=== PATIENT | female | born 1990 | race Caucasian/White ===

== ENCOUNTER 2016-08-14 15:02 | Emergency (ER) | payer SELFPAY ==
[2016-08-14 15:17] VITALS: BP 123/82
--- NOTE | 2016-08-14 15:18 | ER Document Report ---
ED Medical Screen (RME) - General Stated Complaint: COUGH Notes: Patient is a 25-year-old female presents emergency Department with cough runny nose and body aches 2 days ago Wheezing or shortness of breath, denies a history of asthma no influenza vacc I have greeted and performed a rapid initial assessment of this patient. A comprehensive ED assessment and evaluation of the patient, analysis of test results and completion of the medical decision making process will be conducted by additional ED providers. TRAVEL OUTSIDE OF THE [place] IN LAST 30 DAYS: No - Related Data Allergies/Adverse Reactions: No Known Allergies Allergy (Verified 08/14/16 15:17) Past Medical History Pulmonary Medical History: Denies: Hx Asthma, Hx Bronchitis, Hx Pneumonia Renal/ Medical History: Reports: Hx Ovarian Cysts - PCOS - Immunizations Immunizations up to date: No Hx Diphtheria, Pertussis, Tetanus Vaccination: Yes Physical Exam - Vital signs Vitals: Temp Pulse Resp BP Pulse Ox 98.6 F 103 H 16 123/82 99 08/14/16 15:15 08/14/16 15:15 08/14/16 15:15 08/14/16 15:15 08/14/16 15:15 Course - Vital Signs Vital signs: Temp Pulse Resp BP Pulse Ox 98.6 F 103 H 16 123/82 99 08/14/16 15:15 08/14/16 15:15 08/14/16 15:15 08/14/16 15:15 08/14/16 15:15
--- NOTE | 2016-08-14 17:35 | ER Document Report ---
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 [employer], changes locations and temperatures Associated Symptoms: None Exacerbated by: Denies Relieved by: Denies Similar symptoms previously: Yes Recently seen / treated by doctor: No - ROS ROS below otherwise negative: Yes Systems Reviewed and Negative: Yes All other systems reviewed and negative - REPRODUCTIVE Reproductive: DENIES: : - DERM Skin Color: Normal Past Medical History - General Information source: Patient - Social History Smoking Status: Current Every Day Smoker Chew tobacco use (# tins/day): No Frequency of alcohol use: None Drug Abuse: None Lives with: Family Family History: Reviewed & Not Pertinent Patient has suicidal ideation: No Patient has homicidal ideation: No Renal/ Medical History: Reports: Hx Ovarian Cysts - PCOS. Denies: Hx Peritoneal Dialysis Surgical Hx: Negative - Immunizations Immunizations up to date: No Hx Diphtheria, Pertussis, Tetanus Vaccination: Yes Vertical Provider Document - CONSTITUTIONAL Agree With Documented VS: Yes Exam Limitations: No Limitations General Appearance: No Apparent Distress - INFECTION CONTROL TRAVEL OUTSIDE OF THE [place] IN LAST 30 DAYS: No - HEENT HEENT: Normocephalic, PERRLA, Pharyngeal Erythema. negative: Conjuctival Injection, Pharyngeal Tenderness, Tympanic Membrane Bulging - NECK Neck: Supple. negative: Lymphadenopathy-Left, Lymphadenopathy-Right - RESPIRATORY Respiratory: Breath Sounds Normal, No Respiratory Distress O2 Sat by Pulse Oximetry: 99 - CARDIOVASCULAR Cardiovascular: Regular Rate, Regular Rhythm - GI/ABDOMEN Gastrointestinal: Abdomen Soft, Abdomen Non-Tender, No Organomegaly - MUSCULOSKELETAL/EXTREMETIES Musculoskeletal/Extremeties: STAR, PETERSON - NEURO Level of Consciousness: Awake, Alert Motor/Sensory: No Motor Deficit, No Sensory Deficit - DERM Integumentary: Warm, Dry, No Rash Course - Vital Signs Vital signs: Temp Pulse Resp BP Pulse Ox 98.6 F 103 H 16 123/82 99 08/14/16 15:15 08/14/16 15:15 08/14/16 15:15 08/14/16 15:15 08/14/16 15:15 Discharge - Discharge Clinical Impression: upper respiratory infection Disposition: HOME, SELF-CARE Instructions: Acetaminophen, Use of Mpmv-Vze-Rkxrfdu Ibuprofen ([facility]), Upper Respiratory Illness ([facility]) Additional Instructions: cool mist humidifier at night, wash it daily to er if worse stop smoking tylenol or motrin for discomfort rest plenty of fluids over the counter cold medicine of your choice. Forms: Return to Work
== END 2016-08-14 18:10 | disposition home or self-care (01) ==
LOC: ER 15:02
DX: J06.9 Acute upper respiratory infection, unspecified (principal); J02.9 Acute pharyngitis, unspecified; F17.200 Nicotine dependence, unspecified, uncomplicated
CPT/HCPCS: 87804; 99283

== ENCOUNTER 2017-08-06 22:21 | Emergency (ER) | payer SELFPAY ==
[2017-08-06 23:41] VITALS: BP 122/76
--- NOTE | 2017-08-07 01:38 | ER Document Report ---
HPI - HPI Patient complains to provider of: Chills, flank pain, congestion Pain Level: 5 Context: Patient is a 26-year-old female comes emergency department for chief complaint of chills, pain in her mid to lower back on both sides, and some congestion/ cough for the past 24 hours. She denies abdominal pain, nausea or vomiting, shortness of breath, chest pain. No obvious sick contacts. Denies any past medical history, only takes vitamins, LMP within the past month. - REPRODUCTIVE LMP: 07/30/2017 Reproductive: DENIES: : Past Medical History - General Information source: Patient - Social History Smoking Status: Never Smoker Frequency of alcohol use: None Drug Abuse: None Lives with: Family Family History: Reviewed & Not Pertinent Pulmonary Medical History: Denies: Hx Asthma, Hx Bronchitis, Hx Pneumonia Renal/ Medical History: Reports: Hx Ovarian Cysts - PCOS. Denies: Hx Peritoneal Dialysis Surgical Hx: Negative - Immunizations Immunizations up to date: No Hx Diphtheria, Pertussis, Tetanus Vaccination: Yes Vertical Provider Document - CONSTITUTIONAL General Appearance: WD/WN, No Apparent Distress - INFECTION CONTROL TRAVEL OUTSIDE OF THE [place] IN LAST 30 DAYS: No - HEENT HEENT: Atraumatic, Normocephalic. negative: Normal ENT Exam - Sinus congestion , mild tenderness over sinuses generally, unremarkable oropharyngeal exam, unremarkable ear exam - NECK Neck: Normal Inspection - RESPIRATORY Respiratory: Breath Sounds Normal, No Respiratory Distress O2 Sat by Pulse Oximetry: 97 - CARDIOVASCULAR Cardiovascular: Regular Rate, Regular Rhythm - GI/ABDOMEN Gastrointestinal: Abdomen Soft, Abdomen Non-Tender - BACK Back: Normal Inspection. negative: CVA Tenderness-Right, CVA Tenderness-Left - MUSCULOSKELETAL/EXTREMETIES Musculoskeletal/Extremeties: MAEW, FROM, Non-Tender - NEURO Level of Consciousness: Awake, Alert, Appropriate Motor/Sensory: No Motor Deficit, No Sensory Deficit - DERM Integumentary: Warm, Dry Course - Re-evaluation Re-evalutation: Patient tachycardic, complaining of feeling feverish for the past 24 hours, has vague flank pain, mild congestion, nonspecific presentation. No hypoxia. No distress. Discussed with mother and patient, agreed to check chest x-ray, urinalysis, influenza. 08/07/17 Recommended chest x-ray but this was delayed and patient then refused. Urinalysis unremarkable, influenza is negative. On my reevaluation patient's heart rate is 104. She denies any shortness of breath. She has sinus congestion and tenderness suggesting sinus infection although I suspect she actually had a viral syndrome with body aches. No CVA tenderness. Soft abdomen. Generally well-appearing, smiling, alert, conversational. Patient will be treated symptomatically, discussed this, discussed antibiotics for sinus infection, they will wait for this, discussed follow-up, discussed return precautions, patient and mother state satisfaction and agreement with plan. - Vital Signs Vital signs: Temp Pulse Resp BP Pulse Ox 99.6 F 120 H 18 122/76 97 08/06/17 23:38 08/06/17 23:38 08/06/17 23:38 08/06/17 23:38 08/06/17 23:38 Discharge - Discharge Clinical Impression: Chills, Flank pain, Sinus congestion Condition: Stable Disposition: HOME, SELF-CARE Additional Instructions: Your urinalysis is normal. The influenza test is negative. Your physical exam is nonspecific but I suspect a virus with developing sinus infection. Recommendation is to use the Flonase and decongestant along with ibuprofen and Tylenol for pain and chills, if symptoms continue or worsen any begin develop increased pain in your sinuses on the fifth day of symptoms take the antibiotics and follow-up with primary care. Return for any concerning or worsening symptoms including difficulty breathing, severe headache, or any other concerning symptoms. Prescriptions: Amoxicillin Trihydrate [Amoxil 875 mg Tablet] 1 tab PO BID #20 tablet Fluticasone Propionate [Flonase Nasal Wyarno 50 Mcg/Wyarno 16 gm] 2 sprays NASL Q12 #1 inhaler Pseudoephedrine HCl [Sudafed 12-Hour] 120 mg PO Q12 #20 tablet.sa Forms: Return to Work, Treatment of Relative/Child
[2017-08-07 03:54] LABS: APPEARANCE,URINE HAZY; BILIRUBIN,URINE NEGATIVE (NEGATIVE); COLOR,URINE YELLOW; GLUCOSE, URINE NEGATIVE (NEGATIVE); KETONES,URINE NEGATIVE (NEGATIVE); LEUKOCYTE ESTERASE,URINE NEGATIVE (NEGATIVE); NITRITE,URINE NEGATIVE (NEGATIVE); PROTEIN,URINE NEGATIVE (NEGATIVE); URINE SPECIFIC GRAVITY 1.013
[2017-08-07 04:05] LABS: A TYPE INFLUENZA AG NEGATIVE (NEGATIVE); B INFLUENZA AG NEGATIVE (NEGATIVE)
== END 2017-08-07 04:12 | disposition home or self-care (01) ==
LOC: ER 22:21
DX: R68.83 Chills (without fever) (principal); R10.9 Unspecified abdominal pain; R09.81 Nasal congestion; M54.5 Low back pain; Z87.42 Personal history of other diseases of the female genital tract
CPT/HCPCS: 81001; 81025; 87804; 99283

== ENCOUNTER 2017-09-04 08:08 | Emergency (ER) | payer OTHER ==
[2017-09-04] MEDS ORDERED: IPRATROPIUM/ALBUTEROL 0.5-2.5 MG/3 ML AMPUL NEB ONE (09:32)
--- NOTE | 2017-09-04 10:00 | ER Document Report ---
ED General - General Chief Complaint: Cough Stated Complaint: COUGH Time Seen by Provider: 09/04/17 08:47 Mode of Arrival: Ambulatory Information source: Patient TRAVEL OUTSIDE OF THE [place] IN LAST 30 DAYS: No - HPI Notes: a 26-year-old female presents today with complaints of coughing, nasal congestion, wheezing for 1 day. Denies fevers and chills. Cough pain is 6/10, comes and goes. Denies cp, sob, n/v/d,abd pain, dysuria and hematuria. Reports congestion. Cough is productive. Tried otc cold medications without relief. Has not been seen by pcp. Hx of smoking. Symptoms are progressive. Worse when flat, better when upright. Denies pedal swelling. Denies cardiac hx. Vaccinations are UTD. Denies , l - Related Data Allergies/Adverse Reactions: No Known Allergies Allergy (Verified 09/04/17 08:09) Past Medical History - General Information source: Patient - Social History Smoking Status: Current Every Day Smoker Chew tobacco use (# tins/day): No Frequency of alcohol use: Occasional Family History: Reviewed & Not Pertinent Patient has suicidal ideation: No Patient has homicidal ideation: No Pulmonary Medical History: Denies: Hx Asthma, Hx Bronchitis, Hx Pneumonia Renal/ Medical History: Reports: Hx Ovarian Cysts - PCOS. Denies: Hx Peritoneal Dialysis - Immunizations Immunizations up to date: No Hx Diphtheria, Pertussis, Tetanus Vaccination: Yes Review of Systems - Review of Systems Constitutional: No symptoms reported EENT: See HPI Cardiovascular: No symptoms reported Respiratory: See HPI Gastrointestinal: No symptoms reported Genitourinary: No symptoms reported Female Genitourinary: No symptoms reported Musculoskeletal: No symptoms reported Skin: No symptoms reported Hematologic/Lymphatic: No symptoms reported Neurological/Psychological: No symptoms reported Physical Exam - Vital signs Vitals: Temp Pulse Resp BP Pulse Ox 98.6 F 92 16 110/90 H 98 09/04/17 08:21 09/04/17 08:21 09/04/17 08:21 09/04/17 08:21 09/04/17 08:21 - Notes Notes: PHYSICAL EXAMINATION: GENERAL: Well-appearing, well-nourished and in no acute distress. HEAD: Atraumatic, normocephalic. EYES: Pupils equal round and reactive to light, extraocular movements intact, conjunctiva are normal. ENT: TM intact with bilateral serous effusion, no erythema. Nares boggy bilaterally, oropharynx with erythema without exudates. Moist mucous membranes. NECK: Normal range of motion, supple without lymphadenopathy LUNGS: Wheezing in upper lobes. After breathing treatment, breath sounds clear to auscultation bilaterally and equal. No wheezes rales or rhonchi. HEART: Regular rate and rhythm without murmurs ABDOMEN: Soft, nontender, nondistended abdomen. No guarding, no rebound. No masses appreciated. Female : deferred Musculoskeletal: Normal range of motion, no pitting or edema. No cyanosis. NEUROLOGICAL: Cranial nerves grossly intact. Normal speech, normal gait. Normal sensory, motor exams PSYCH: Normal mood, normal affect. SKIN: Warm, Dry, normal turgor, no rashes or lesions noted. Course - Re-evaluation Re-evalutation: Rechecked the patient who is resting comfortably. On re-exam, patient is symptomatically improved. Discussed the results of the radiology as well as the diagnosis at great length. Chest x-ray negative for any acute findings. Advised patient to use Ventolin inhaler, prednisone, and Tessalon Perles as directed. Take [id number]-bym-[id number] cough medication as needed. Follow-up with PCP within 3 days. Return to the ER if symptoms become worse. Discussed the need to return to the ER for any new or worsening sx. Patient understands to take the Rx as directed. All questions answered. Patient comfortable with the decision to go home. After performing a Medical Screening Examination, I estimate there is LOW risk for ACUTE CORONARY SYNDROME, PULMONARY EMBOLI, RESPIRATORY FAILURE, SEPSIS OR MENINGITIS, thus I consider the discharge disposition reasonable. I have reevaluated this patient multiple times and no significant life threatening changes are noted. The patient and I have discussed the diagnosis and risks, and we agree with discharging home with close follow-up. We also discussed returning to the Emergency Department immediately if new or worsening symptoms occur. We have discussed the symptoms which are most concerning (e.g., changing or worsening pain, trouble swallowing or breathing, neck stiffness, fever) that necessitate immediate return. 09/04/17 10:27 - Vital Signs Vital signs: Temp Pulse Resp BP Pulse Ox 98.6 F 92 16 110/90 H 98 09/04/17 08:21 09/04/17 08:21 09/04/17 08:21 09/04/17 08:21 09/04/17 08:21 Discharge - Discharge Clinical Impression: Viral URI with cough Condition: Good Disposition: HOME, SELF-CARE Instructions: Upper Respiratory Illness ([facility]) Prescriptions: Benzonatate [Tessalon Perles 100 mg Capsule] 100 mg PO Q8HP PRN #20 capsule PRN Reason: Albuterol Sulfate [Ventolin HFA MDI 18 GM] 1 - 2 puff IH Q4H PRN #1 mdi PRN Reason: Prednisone 20 mg PO BID #10 tablet Forms: Return to School, Return to Work Referrals: NAVEEN JACK MD [COMMUNITY BASED STAFF] - Follow up in 3-5 days
--- NOTE | 2017-09-04 10:23 | RADIOLOGY REPORT (SQ) ---
EXAM DESCRIPTION: CHEST PA/LAT COMPLETED DATE/TIME: 09/04/2017 10:12 am REASON FOR STUDY: cough, wheezing. diminished BS COMPARISON: 11/06/2013 NUMBER OF VIEWS: Two view. TECHNIQUE: Frontal and lateral radiographic views of the chest acquired. LIMITATIONS: None. FINDINGS: LUNGS AND PLEURA: No opacities, masses or pneumothorax. No pleural effusion. MEDIASTINUM AND HILAR STRUCTURES: No masses or contour abnormalities. HEART AND VASCULATURE: Heart normal size. No evidence for failure. BONY STRUCTURES: No acute findings. HARDWARE: None. OTHER: No other significant finding. IMPRESSION: NO SIGNIFICANT RADIOGRAPHIC FINDING IN THE CHEST. TECHNICAL DOCUMENTATION: JOB ID: [id number] [employer]- All Rights Reserved
[2017-09-04 11:05] VITALS: BP 117/83
== END 2017-09-04 11:05 | disposition home or self-care (01) ==
LOC: ER 08:08
DX: J06.9 Acute upper respiratory infection, unspecified (principal); B97.89 Other viral agents as the cause of diseases classified elsewhere; R05 Cough; R09.81 Nasal congestion; R06.2 Wheezing; F17.200 Nicotine dependence, unspecified, uncomplicated
CPT/HCPCS: 94640; 99283; 71046; J7620

== ENCOUNTER 2017-10-17 11:24 | Emergency (ER) | payer OTHER ==
[2017-10-17 11:38] VITALS: BP 128/85
[2017-10-17] MEDS ORDERED: CIPROFLOXACIN HCL/DEXAMETH OTIC DROP 7.5 ML AS ONE (12:22)
--- NOTE | 2017-10-17 12:27 | ER Document Report ---
HPI - HPI Pain Level: 5 Notes: Patient is a 27-year-old female no significant past medical history presents to the ED complaining of right ear pain 1 day. Patient states that her ear feels swollen. She denies any recent swimming. The pain is worsened when she opens and closes her jaw. Patient states that she is still eating and drinking without any other difficulties otherwise. He is urinating normally and having normal bowel movements. Denies any other recent illness. No drug allergies. Denies any headache, fever, head injury, neck pain, URI, sore throat, chest pain , palpitations, syncope, cough, shortness of breath, wheeze, dyspnea, abdominal pain, nausea/vomiting/diarrhea, urinary retention, dysuria, hematuria, or rash. - ROS Systems Reviewed and Negative: Yes All other systems reviewed and negative - CONSTITUTIONAL Constitutional: DENIES: Chills - EENT EENT: REPORTS: Ear Pain - REPRODUCTIVE Reproductive: DENIES: : Past Medical History - Social History Smoking Status: Current Every Day Smoker Chew tobacco use (# tins/day): No Frequency of alcohol use: None Drug Abuse: None Family History: Reviewed & Not Pertinent Patient has suicidal ideation: No Patient has homicidal ideation: No Pulmonary Medical History: Denies: Hx Asthma, Hx Bronchitis, Hx Pneumonia Renal/ Medical History: Reports: Hx Ovarian Cysts - PCOS. Denies: Hx Peritoneal Dialysis - Immunizations Immunizations up to date: No Hx Diphtheria, Pertussis, Tetanus Vaccination: Yes Vertical Provider Document - CONSTITUTIONAL Agree With Documented VS: Yes Notes: PHYSICAL EXAMINATION: GENERAL: Well-appearing, well-nourished and in no acute distress. A&Ox4. Answers questions appropriately. Moves comfortably w/o notable distress HEAD: Atraumatic, normocephalic. EYES: Pupils equal round and reactive to light, extraocular movements intact, sclera anicteric, conjunctiva are normal. ENT: LT TM/EAC wnl. Rt TM cannot visualize. Rt EAC swollen and tender to palp. Nares patent and without discharge. oropharynx mild erythema without exudates. No tonsilar hypertrophy without erythema or exudate. No palatine shift. Uvula midline. No tongue protrusion. No drooling, hoarseness, or airway compromise. Moist mucous membranes. No sinus tenderness. NECK: Normal range of motion, supple without lymphadenopathy. No rigidity/ meningismus. LUNGS: Breath sounds clear to auscultation bilaterally and equal. No wheezes rales or rhonchi. No retractions HEART: Regular rate and rhythm without murmurs, rubs, gallops. NEUROLOGICAL: Normal speech, normal gait. Normal sensory, motor exams PSYCH: Normal mood, normal affect. SKIN: Warm, Dry, normal turgor, no rashes or lesions noted. - INFECTION CONTROL TRAVEL OUTSIDE OF THE [place] IN LAST 30 DAYS: No Course - Re-evaluation Re-evalutation: 10/17/17 12:39 Patient is an afebrile, well-hydrated, 27-year-old female who presents to the ED with an acute otitis externa of the right ear. Vitals are acceptable. PE is otherwise unremarkable. Wick was placed and Ciprodex applied. No labs or imaging warranted at this time based on H&P. Low suspicion for any sepsis, meningitis, severe dehydration, respiratory compromise, mastoiditis, or other systemic emergent condition at this time. Patient is aware that condition can change from initial presentation and she needs to monitor symptoms closely and seek medical attention with any acute changes. Conservative measures otherwise for symptoms. Recheck with your PCM in 3-5 days. Consider consult with ENT. Return to the ED with any worsening/concerning symptoms otherwise as reviewed discharge. Patient is in agreement. - Vital Signs Vital signs: Temp Pulse Resp BP Pulse Ox 98.2 F 84 18 128/85 H 99 10/17/17 11:32 10/17/17 11:32 10/17/17 11:32 10/17/17 11:32 10/17/17 11:32 Procedures - Additional Procedures ear wick placement Time performed: 12:35 Notes: 10/17/17 12:35 Ear wick was placed bayonett forceps successfully without any complications. Discharge - Discharge Clinical Impression: Otitis externa of right ear Qualifiers: Otitis externa type: unspecified type Chronicity: acute Qualified Code(s): H60.501 - Unspecified acute noninfective otitis externa, right ear Condition: Stable Disposition: HOME, SELF-CARE Instructions: Using Ear Drops with a Wick ([facility]), Otitis Externa ([facility]) Additional Instructions: Maintain adequate fluid intake Take meds as directed Keep ears clean, avoid use of q-tips tylenol/ibuprofen as needed over the counter cold medication as needed for symptoms Wash your hands regularly F/u: with your PCM in 3-5 days for a recheck Consider consult with ENT Return to the ED with any fever, worsening pain, chest pain, palpitations, syncope, worsening [place], neck pain/stiffness, shortness of breath, wheezing, drooling, trouble swallowing/breathing, abdominal pain, n/v/d, rash, or worsening/concerning symptoms otherwise. Prescriptions: Ciprofloxacin HCl/Dexameth [Ciprodex Otic Suspension 7.5 ml Bottle] 4 drop OT BID #1 bottle Forms: Elevated Blood Pressure, Smoking Cessation Education Referrals: CATHI CASTELLANOS DO [ASSOCIATE] - Follow up as needed
== END 2017-10-17 13:03 | disposition home or self-care (01) ==
LOC: ER 11:24
DX: H60.501 Unspecified acute noninfective otitis externa, right ear (principal); F17.200 Nicotine dependence, unspecified, uncomplicated
CPT/HCPCS: 99282; J3490

== ENCOUNTER 2017-10-18 10:23 | Emergency (ER) | payer OTHER ==
[2017-10-18 10:32] VITALS: BP 129/70
[2017-10-18] MEDS ORDERED: LIDOCAINE 2% URO-JET 5 ML KIT MM ONE (11:00)
--- NOTE | 2017-10-18 11:04 | ER Document Report ---
ED ENT - General Chief Complaint: Ear Pain Stated Complaint: EAR PAIN Time Seen by Provider: 10/18/17 10:39 Mode of Arrival: Ambulatory Information source: Patient Notes: Patient is a 27-year-old female who presents to the ER today for right ear pain continued since being seen here in the emergency department yesterday, having awake placed in being given Ciprodex eardrops for otitis externa. Patient states that she has been using them, but that the wick is really hurting her ear and she cannot sleep last night because of the pain. Patient denies any pain to the left ear, other symptoms, fever or chills. TRAVEL OUTSIDE OF THE [place] IN LAST 30 DAYS: No - Related Data Allergies/Adverse Reactions: No Known Allergies Allergy (Verified 10/18/17 10:24) Past Medical History - General Information source: Patient - Social History Smoking Status: Never Smoker Family History: Reviewed & Not Pertinent Pulmonary Medical History: Denies: Hx Asthma, Hx Bronchitis, Hx Pneumonia Renal/ Medical History: Reports: Hx Ovarian Cysts - PCOS. Denies: Hx Peritoneal Dialysis - Immunizations Immunizations up to date: No Hx Diphtheria, Pertussis, Tetanus Vaccination: Yes Review of Systems - Review of Systems Constitutional: No symptoms reported EENT: See HPI Cardiovascular: No symptoms reported Respiratory: No symptoms reported Gastrointestinal: No symptoms reported Genitourinary: No symptoms reported Female Genitourinary: No symptoms reported Musculoskeletal: No symptoms reported Skin: No symptoms reported Hematologic/Lymphatic: No symptoms reported Neurological/Psychological: No symptoms reported Physical Exam - Vital signs Vitals: Temp Pulse Resp BP Pulse Ox 99.0 F 100 15 129/70 H 98 10/18/17 10:31 10/18/17 10:31 10/18/17 10:31 10/18/17 10:31 10/18/17 10:31 - Notes Notes: PHYSICAL EXAMINATION: GENERAL: Mildly ill-appearing, but in no acute distress. HEAD: Atraumatic, normocephalic. EYES: Pupils equal round and reactive to light, extraocular movements intact, sclera anicteric, conjunctiva are normal. ENT: Bilateral TMs with edema, erythema, purulence inside, TMs pearly miller with good cone of light, visible bilaterally, nares patent, oropharynx clear without exudates. Moist mucous membranes. NECK: Normal range of motion, supple without lymphadenopathy LUNGS: CTAB and equal. No wheezes rales or rhonchi. HEART: Regular rate and rhythm without murmurs EXTREMITIES: Normal range of motion, no pitting edema. No cyanosis. NEUROLOGICAL: Cranial nerves grossly intact. Normal sensory/motor exams. PSYCH: Normal mood, normal affect. SKIN: Warm, Dry, normal turgor, no rashes or lesions noted Course - Re-evaluation Re-evalutation: 10/18/17 11:02 Urojet lidocaine was placed in the ear to numb the ear, this was after wick was removed. Wick was very large and I suspect this is what was hurting patient here. - Vital Signs Vital signs: Temp Pulse Resp BP Pulse Ox 99.0 F 100 15 129/70 H 98 10/18/17 10:31 10/18/17 10:31 10/18/17 10:31 10/18/17 10:31 10/18/17 10:31 Discharge - Discharge Clinical Impression: Otitis externa of right ear Qualifiers: Otitis externa type: unspecified type Chronicity: acute Qualified Code(s): H60.501 - Unspecified acute noninfective otitis externa, right ear Otitis externa of left ear Qualifiers: Otitis externa type: unspecified type Chronicity: acute Qualified Code(s): H60.502 - Unspecified acute noninfective otitis externa, left ear Condition: Stable Disposition: HOME, SELF-CARE Additional Instructions: Return immediately for any new or worsening symptoms. Follow up with primary care provider, call tomorrow to make followup appointment. Please place 4 drops of Ciprodex and both ears. Prescriptions: Neomy Sulf/Polymyx B Sulf/Hc [Cortisporin Ear Suspension] 10 ml OT QID #1 drops.susp
== END 2017-10-18 11:22 | disposition home or self-care (01) ==
LOC: ER 10:23
DX: H60.503 Unspecified acute noninfective otitis externa, bilateral (principal); H92.01 Otalgia, right ear
CPT/HCPCS: 99282; J3490

== ENCOUNTER 2018-04-07 11:23 | Emergency (ER) | payer OTHER ==
[2018-04-07] MEDS ORDERED: HYDROCODONE/ACETAMINOPHEN 5-325 MG TABLET PO ONE (13:16)
--- NOTE | 2018-04-07 13:18 | ER Document Report ---
HPI - HPI Patient complains to provider of: Left ear pain Onset: Other - 3 days Onset/Duration: Persistent Quality of pain: Achy Pain Level: 4 Context: Patient presents complaining of left ear pain for the past 3 days. Patient has a history of otitis externa and suspect the same today. Patient denies any fever. Patient does report drainage from the ear. Associated Symptoms: Earache. denies: Fever Exacerbated by: Denies Relieved by: Denies Similar symptoms previously: Yes Recently seen / treated by doctor: No - ROS ROS below otherwise negative: Yes Systems Reviewed and Negative: Yes All other systems reviewed and negative - CONSTITUTIONAL Constitutional: DENIES: Fever, Chills - EENT EENT: REPORTS: Ear Pain. DENIES: Sore Throat, Eye problems - GASTROINTESTINAL Gastrointestinal: DENIES: Nausea - REPRODUCTIVE Reproductive: DENIES: : - MUSCULOSKELETAL Musculoskeletal: DENIES: Extremity pain - DERM Skin Color: Normal Skin Problems: None Past Medical History - General Information source: Patient - Social History Smoking Status: Never Smoker Chew tobacco use (# tins/day): No Smoking Education Provided: Yes Frequency of alcohol use: None Drug Abuse: None Occupation: None Family History: Reviewed & Not Pertinent Patient has suicidal ideation: No Patient has homicidal ideation: No - Medical History Medical History: Negative Pulmonary Medical History: Denies: Hx Asthma, Hx Bronchitis, Hx Pneumonia Renal/ Medical History: Reports: Hx Ovarian Cysts - PCOS. Denies: Hx Peritoneal Dialysis Surgical Hx: Negative - Immunizations Immunizations up to date: No Hx Diphtheria, Pertussis, Tetanus Vaccination: Yes Vertical Provider Document - CONSTITUTIONAL Agree With Documented VS: Yes Exam Limitations: No Limitations General Appearance: WD/WN, No Apparent Distress - INFECTION CONTROL TRAVEL OUTSIDE OF THE [place] IN LAST 30 DAYS: No - HEENT HEENT: Atraumatic, Normocephalic. negative: Pharyngeal Exudate, Pharyngeal Tenderness, Pharyngeal Erythema, Tympanic Membrane Red, Tympanic Membrane Bulging Notes: Swelling to left external auditory canal with debris. Patient with tenderness with movement of left helix. No mastoid tenderness or swelling. TM unable to be visualized - NECK Neck: Normal Inspection, Supple - RESPIRATORY Respiratory: No Respiratory Distress - BACK Back: Normal Inspection - MUSCULOSKELETAL/EXTREMETIES Musculoskeletal/Extremeties: PETERSON GRAVES - NEURO Level of Consciousness: Awake, Alert, Appropriate Motor/Sensory: No Motor Deficit - DERM Integumentary: Warm, Dry, No Rash Discharge - Discharge Clinical Impression: Otitis externa Qualifiers: Otitis externa type: unspecified type Chronicity: acute Laterality: left Qualified Code(s): H60.502 - Unspecified acute noninfective otitis externa, left ear Condition: Stable Disposition: HOME, SELF-CARE Instructions: Acetaminophen, Use of Ear Drops ([facility]) Additional Instructions: Return immediately for any new or worsening symptoms Followup with your primary care provider, call tomorrow to make a followup appointment Follow-up with an ear nose and throat doctor for any persistent pain or problems Prescriptions: Naproxen [Naprosyn 250 Nmg Tablet] 1 tab PO BID #14 tablet Neomy Sulf/Polymyx B Sulf/Hc [Cortisporin Ear Suspension] 4 drop OT QID #1 bottle Forms: Smoking Cessation Education Referrals: ADRI,NO [Primary Care Provider] - Follow up as needed
[2018-04-07 13:55] VITALS: BP 121/74
== END 2018-04-07 13:32 | disposition home or self-care (01) ==
LOC: ER 11:23
DX: H60.502 Unspecified acute noninfective otitis externa, left ear (principal); H92.02 Otalgia, left ear
CPT/HCPCS: 99282

== ENCOUNTER 2018-05-09 21:42 | Emergency (ER) | payer OTHER ==
--- NOTE | 2018-05-09 22:40 | ER Document Report ---
HPI - HPI Pain Level: 4 Context: Patient is a 27-year-old female that comes to the emergent area on her right posterior upper thigh where she developed an abscess, she states that the area did "pop" and drain, she states however now there is a hole with some tenderness and some surrounding redness. She denies any fever or chills, she does not have diabetes, she has had abscesses in the past. She reports she is up-to-date on her tetanus. PMH of PCOS. No other complaints. - REPRODUCTIVE Reproductive: DENIES: : Past Medical History - General Information source: Patient, Parent - Social History Smoking Status: Never Smoker Frequency of alcohol use: None Drug Abuse: None Lives with: Family Family History: Reviewed & Not Pertinent Pulmonary Medical History: Denies: Hx Asthma, Hx Bronchitis, Hx Pneumonia Renal/ Medical History: Reports: Hx Ovarian Cysts - PCOS. Denies: Hx Peritoneal Dialysis Surgical Hx: Negative - Immunizations Immunizations up to date: Yes Hx Diphtheria, Pertussis, Tetanus Vaccination: Yes Vertical Provider Document - CONSTITUTIONAL General Appearance: WD/WN, No Apparent Distress - INFECTION CONTROL TRAVEL OUTSIDE OF THE [place] IN LAST 30 DAYS: No - HEENT HEENT: Atraumatic, Normocephalic - NECK Neck: Normal Inspection - RESPIRATORY Respiratory: Breath Sounds Normal, No Respiratory Distress - CARDIOVASCULAR Cardiovascular: Regular Rate, Regular Rhythm - GI/ABDOMEN Gastrointestinal: Abdomen Soft, Abdomen Non-Tender - BACK Back: Normal Inspection - MUSCULOSKELETAL/EXTREMETIES Musculoskeletal/Extremeties: MAEW, FROM, Non-Tender - NEURO Level of Consciousness: Awake, Alert, Appropriate Motor/Sensory: No Motor Deficit, No Sensory Deficit - DERM Integumentary: Abscess - There is an open healing abscess (with a large opening ) in the right upper posterior thigh below the buttocks, there is mild surrounding erythema, there is no current drainage, there is no noted induration. Course - Re-evaluation Re-evalutation: There is a large opening where the abscess was, currently healing, there is some minimal surrounding erythema suggesting cellulitis, there is no current induration or fluctuance. Patient states she did not open this herself. Appears to have opened and is healing on its own. This was packed because of the depth with iodoform, discussed packing removal, discussed dressing, provided with supplies, asked for cellulitis component, discussed follow-up and return precautions in detail. Patient states understanding and agreement with plan. - Vital Signs Vital signs: Temp Pulse Resp BP Pulse Ox 98.4 F 91 16 126/80 H 97 05/09/18 21:46 05/09/18 21:46 05/09/18 21:46 05/09/18 21:46 05/09/18 21:46 Discharge - Discharge Clinical Impression: Abscess Cellulitis Qualifiers: Site of cellulitis: extremity Site of cellulitis of extremity: lower extremity Laterality: right Qualified Code(s): L03.115 - Cellulitis of right lower limb Condition: Stable Disposition: HOME, SELF-CARE Additional Instructions: The area is consistent with an abscess that already drained as well as some surrounding skin infection (cellulitis). Take the Keflex antibiotics as prescribed. Completely remove the packing placed in 48-72 hours from now. Afterwards clean the area with soap and water, keep clean dressing over the area until it completely heals. Follow-up with primary care. Return if you worsen including spreading redness, developing fever, or any other concerning or worsening symptoms. Prescriptions: Cephalexin Monohydrate [Keflex 500 mg Capsule] 500 mg PO QID #28 capsule Referrals: LOCALMD,NO [NO LOCAL MD] - Follow up as needed
[2018-05-09 22:58] VITALS: BP 130/80
== END 2018-05-09 22:58 | disposition home or self-care (01) ==
LOC: ER 21:42
DX: L02.415 Cutaneous abscess of right lower limb (principal)
CPT/HCPCS: 99283; A6266

== ENCOUNTER 2018-07-21 17:47 | Emergency (ER) | payer OTHER ==
[2018-07-21] MEDS ORDERED: CIPROFLOXACIN HCL/DEXAMETH OTIC DROP 7.5 ML AD ONE (20:39)
--- NOTE | 2018-07-21 21:01 | ER Document Report ---
ED General - General Chief Complaint: Ear Pain Stated Complaint: EAR PAIN Time Seen by Provider: 07/21/18 20:22 Mode of Arrival: Ambulatory Information source: Patient Notes: 27-year-old female with history of recurrent ear infections presents with complaint of right ear pain that started 1 day prior to arrival. Patient denies fever, chills, nasal congestion, headache, sore throat. Patient denies any medical problems, current medication use. Known drug allergies. TRAVEL OUTSIDE OF THE [place] IN LAST 30 DAYS: No - HPI Onset: Yesterday Onset/Duration: Gradual, Persistent, Worse Quality of pain: Achy, Throbbing Severity: Mild Associated symptoms: Earache. denies: Nonproductive cough, Productive cough, Fever, Nausea, Vomiting, Sinus pain/drainage, Sore throat Exacerbated by: Denies Relieved by: Denies Similar symptoms previously: Yes Recently seen / treated by doctor: No - Related Data Allergies/Adverse Reactions: No Known Allergies Allergy (Verified 04/07/18 11:25) Past Medical History - General Information source: Patient, [facility] Records - Social History Smoking Status: Current Every Day Smoker Cigarette use (# per day): Yes - 15 Smoking Education Provided: Yes - Smoking cessation counseling was provided for 4 minutes at the bedside Frequency of alcohol use: None Drug Abuse: None Lives with: Family Family History: Reviewed & Not Pertinent Patient has suicidal ideation: No Patient has homicidal ideation: No Pulmonary Medical History: Denies: Hx Asthma, Hx Bronchitis, Hx Pneumonia Renal/ Medical History: Reports: Hx Ovarian Cysts - PCOS. Denies: Hx Peritoneal Dialysis - Immunizations Immunizations up to date: Yes Hx Diphtheria, Pertussis, Tetanus Vaccination: Yes Review of Systems - Review of Systems Notes: REVIEW OF SYSTEMS: CONSTITUTIONAL : Denies fever, chills, or sweats. Denies recent illness. Denies weight loss, recent hospitalizations. EENT: Denies visual changes, eye pain. Denies sore throat, oral lesions, difficulty swallowing. CARDIOVASCULAR: Denies chest pain. Denies palpitations. Denies lower extremity edema. RESPIRATORY: Denies cough. Denies shortness of breath, wheezing. GASTROINTESTINAL: Denies abdominal pain or distention. Denies nausea, vomiting, or diarrhea. Denies blood in vomitus, stools, or per rectum. Denies black, tarry stools. Denies constipation. GENITOURINARY: Denies difficulty urinating, painful urination, frequency, blood in urine, or vaginal discharge. MUSCULOSKELETAL: Denies back or neck pain or stiffness. Denies joint pain or swelling. SKIN: Denies rash, lesions or sores. HEMATOLOGIC : Denies easy bruising or bleeding. LYMPHATIC: Denies swollen glands. NEUROLOGICAL: Denies confusion or altered mental status. Denies loss of consciousness. Denies dizziness or lightheadedness. Denies headache. Denies weakness or paralysis. Denies problems difficulty with ambulation, slurred speech. Denies sensory loss, numbness, or tingling. Denies seizures. PSYCHIATRIC: Denies anxiety or stress. Denies depression, suicidal ideation, or homicidal ideation. Denies visual or auditory hallucinations. Physical Exam - Vital signs Vitals: Temp Pulse Resp BP Pulse Ox 98.8 F 92 16 123/74 98 07/21/18 17:50 07/21/18 17:50 07/21/18 17:50 07/21/18 17:50 07/21/18 17:50 - Notes Notes: PHYSICAL EXAMINATION: GENERAL: Well-appearing, well-nourished and in no acute distress. HEAD: Atraumatic, normocephalic. EYES: Pupils equal round and reactive to light, extraocular movements intact, conjunctiva are normal. ENT: Nares patent, oropharynx clear without exudates. Moist mucous membranes. Right external canal, edematous, erythematous. NECK: Normal range of motion, supple without lymphadenopathy LUNGS: Breath sounds clear to auscultation bilaterally and equal. No wheezes rales or rhonchi. HEART: Regular rate and rhythm without murmurs ABDOMEN: Soft, nontender, nondistended abdomen. No guarding, no rebound. No masses appreciated. Female : deferred Musculoskeletal: Normal range of motion, no pitting or edema. No cyanosis. NEUROLOGICAL: Cranial nerves grossly intact. Normal speech, normal gait. Normal sensory, motor exams PSYCH: Normal mood, normal affect. SKIN: Warm, Dry, normal turgor, no rashes or lesions noted. Course - Re-evaluation Re-evalutation: Temp Pulse Resp BP Pulse Ox 98.6 F 88 18 117/77 98 07/21/18 21:07 07/21/18 21:07 07/21/18 21:07 07/21/18 21:07 07/21/18 21:07 07/22/18 02:04 27-year-old female presents with right ear pain. Exam consistent with otitis externa. Ear wick placed and Cipro otic drops provided to the patient. Patient is afebrile, well-appearing. States that she often gets water in her ears when showering. No history of diabetes. Does not appear to be malignant otitis externa. Patient discharged home in stable condition with recommendations to follow-up with her primary care physician. - Vital Signs Vital signs: Temp Pulse Resp BP Pulse Ox 98.6 F 88 18 117/77 98 07/21/18 21:07 07/21/18 21:07 07/21/18 21:07 07/21/18 21:07 07/21/18 21:07 Discharge - Discharge Clinical Impression: Otitis externa Qualifiers: Otitis externa type: unspecified type Chronicity: acute Laterality: right Qualified Code(s): H60.501 - Unspecified acute noninfective otitis externa, right ear Condition: Good Disposition: HOME, SELF-CARE Instructions: Using Ear Drops with a Wick ([facility]), Otitis Externa ([facility]) Additional Instructions: Please place 3 drops in your right ear twice a day for the next 7 days. When placing the drops lay on her left side for [address] a cotton ball in your right ear. Do not allow your right ear tube become wet. Prescriptions: Amox Tr/Potassium Clavulanate [Augmentin 875-125 mg Tablet] 1 tab PO BID #20 tablet Forms: Smoking Cessation Education
[2018-07-21 21:08] VITALS: BP 117/77
== END 2018-07-21 21:08 | disposition home or self-care (01) ==
LOC: ER 17:47
DX: H60.501 Unspecified acute noninfective otitis externa, right ear (principal); H92.01 Otalgia, right ear; F17.210 Nicotine dependence, cigarettes, uncomplicated; Z71.6 Tobacco abuse counseling
CPT/HCPCS: 99406; 99282; J3490

== ENCOUNTER 2019-01-02 09:30 | Emergency (ER) | payer SELFPAY ==
--- NOTE | 2019-01-02 11:30 | ER Document Report ---
HPI - HPI Patient complains to provider of: Left ear pain Time Seen by Provider: 01/02/19 11:12 Onset: This morning Onset/Duration: Gradual Quality of pain: Achy Pain Level: 2 Context: Patient presents complaining of left ear pain with swelling to the ear canal. Patient reports drainage from her ear. Patient does report swimming recently. Patient denies any fever. Associated Symptoms: Earache. denies: Fever Exacerbated by: Denies Relieved by: Denies Similar symptoms previously: Yes Recently seen / treated by doctor: No - ROS ROS below otherwise negative: Yes Systems Reviewed and Negative: Yes All other systems reviewed and negative - CONSTITUTIONAL Constitutional: DENIES: Fever, Chills - EENT EENT: REPORTS: Ear Pain - L ear pain. 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 Denies: Hx Peritoneal Dialysis Surgical Hx: Negative - Immunizations Immunizations up to date: Yes Hx Diphtheria, Pertussis, Tetanus Vaccination: Yes Vertical Provider Document - CONSTITUTIONAL Agree With Documented VS: Yes Exam Limitations: No Limitations General Appearance: WD/WN, No Apparent Distress - INFECTION CONTROL TRAVEL OUTSIDE OF THE [place] IN LAST 30 DAYS: No - HEENT HEENT: Atraumatic, Normocephalic. negative: Pharyngeal Exudate, Pharyngeal Tenderness, Pharyngeal Erythema, Tympanic Membrane Red, Tympanic Membrane Bulging Notes: Swelling to the left ear canal with debris, no mastoid tenderness or swelling - NECK Neck: Normal Inspection, Supple. negative: Lymphadenopathy-Left, Lymphadenopathy-Right - RESPIRATORY Respiratory: Breath Sounds Normal, No Respiratory Distress - CARDIOVASCULAR Cardiovascular: Regular Rate, Regular Rhythm - MUSCULOSKELETAL/EXTREMETIES Musculoskeletal/Extremeties: MAEW - NEURO Level of Consciousness: Awake, Alert, Appropriate Motor/Sensory: No Motor Deficit - DERM Integumentary: Warm, Dry, No Rash Course - Re-evaluation Re-evalutation: 01/02/19 11:28 Patient with findings worrisome for otitis externa. Patient encouraged to wear earplugs in the future when she swims as well as when she is in the shower. Patient encouraged to see ENT for any worsening symptoms. - Vital Signs Vital signs: Temp Pulse Resp BP Pulse Ox 98.5 F 87 16 125/71 96 01/02/19 09:34 01/02/19 09:34 01/02/19 09:34 01/02/19 09:34 01/02/19 09:34 Discharge - Discharge Clinical Impression: Otitis externa Qualifiers: Otitis externa type: unspecified type Chronicity: acute Laterality: left Qualified Code(s): H60.502 - Unspecified acute noninfective otitis externa, left ear Condition: Stable Disposition: HOME, SELF-CARE Instructions: Acetaminophen, Use of Ear Drops ([facility]), Otitis Externa ([facility]) Additional Instructions: Return immediately for any new or worsening symptoms Followup with your primary care provider, call tomorrow to make a followup appointment Prescriptions: Ciprofloxacin HCl/Dexameth [Ciprodex Otic Suspension 7.5 Ml Drp Bottle] 4 drop LFT_EAR BID #1 bottle Forms: Smoking Cessation Education, Return to Work Referrals: [facility] [Provider Group] - Follow up as needed
[2019-01-02 12:04] VITALS: BP 126/81
== END 2019-01-02 11:54 | disposition home or self-care (01) ==
LOC: ER 09:30
DX: H60.502 Unspecified acute noninfective otitis externa, left ear (principal); H92.02 Otalgia, left ear; F17.200 Nicotine dependence, unspecified, uncomplicated
CPT/HCPCS: 99282

== ENCOUNTER 2019-03-08 19:57 | Emergency (ER) | payer SELFPAY ==
[2019-03-08 20:03] VITALS: BP 118/80
[2019-03-08] MEDS ORDERED: IBUPROFEN 600 MG TABLET PO ONE (20:18)
[2019-03-08] MEDS ORDERED: ACETAMINOPHEN 325 MG TABLET PO ONE (20:19)
--- NOTE | 2019-03-08 20:25 | ER Document Report ---
HPI - HPI Patient complains to provider of: left ankle injury Time Seen by Provider: 03/08/19 20:10 Pain Level: 4 Context: Healthy 28-year-old female presents the emergency department for left ankle pain since 2:00 this morning. Patient states that she was sleeping woke up in pain. 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 Patient states that there is a spot where she has to step up onto an uneven floor and she is not sure if she may have rolled her ankle or stress that unknowingly. Patient states that she is having difficulty bearing weight on it. Denies trauma. Able to wiggle her toes. 2+ dorsalis pedis pulse. No other complaints - CONSTITUTIONAL Constitutional: DENIES: Fever, Chills - REPRODUCTIVE Reproductive: DENIES: : - MUSCULOSKELETAL Musculoskeletal: REPORTS: Extremity pain - L ankle Past Medical History - Social History Smoking Status: Current Every Day Smoker Frequency of alcohol use: None Drug Abuse: None Family History: Reviewed & Not Pertinent Patient has suicidal ideation: No Patient has homicidal ideation: No Pulmonary Medical History: Denies: Hx Asthma, Hx Bronchitis, Hx Pneumonia Renal/ Medical History: Reports: Hx Ovarian Cysts - PCOS. Denies: Hx P eritoneal Dialysis - Immunizations Immunizations up to date: Yes Hx Diphtheria, Pertussis, Tetanus Vaccination: Yes Vertical Provider Document - CONSTITUTIONAL Notes: PHYSICAL EXAMINATION: Reviewed vital signs and charting by RN GENERAL: Alert, interacts well. No acute distress. HEAD: Normocephalic, atraumatic. EYES: Pupils equal and round. Extraocular movements intact. ENT: Oral mucosa moist, tongue midline. NECK: Full range of motion. Trachea midline. EXTREMITIES: Moves all 4 extremities spontaneously. No edema, No cyanosis. Tenderness to palpation over the anterior left dorsal foot in the area of the talofibular ligament, patient has range of motion, 5/5 strength both dorsi and plantar flexion, brisk cap refill PSYCH: Normal affect, normal mood. SKIN: Warm, dry, normal turgor. No rashes or lesions noted. - INFECTION CONTROL TRAVEL OUTSIDE OF THE [place] IN LAST 30 DAYS: No Course - Re-evaluation Re-evalutation: 03/08/19 20:24 Well-appearing and symptoms most consistent with a left anterior talofibular ligament sprain. Plan is to place her in an López wrap and provide education with crutches. Patient with a normal distal neurovascular exam and stable for discharge with strict return precautions. - Vital Signs Vital signs: Temp Pulse Resp BP Pulse Ox 98.4 F 93 24 H 118/80 97 03/08/19 20:00 03/08/19 20:00 03/08/19 20:00 03/08/19 20:00 03/08/19 20:00 Discharge - Discharge Clinical Impression: Ankle sprain Qualifiers: Encounter type: initial encounter Involved ligament of ankle: anterior talofibular ligament Laterality: left Qualified Code(s): S93.492A - Sprain of other ligament of left ankle, initial encounter Condition: Good Disposition: HOME, SELF-CARE Instructions: Sprained Ankle ([facility]) Additional Instructions: You have an ankle sprain. Treatment is to stay off your foot for the next luis ral days. Please use crutches for at least 2 days. After 2 days you can slowly start to try to bear weight on your foot. If you are still having significant pain with weightbearing then continued use of crutches for another 24-48 hours. You can stop using the crutches when you are able to bear weight on your foot without having significant pain and walk without significant pain. Please return to the ER in 1 week for reevaluation if you are still having use of crutches because it is too painful to bear weight on your ankle. No sporting activities or running for at least 2 weeks. Forms: Return to Work
== END 2019-03-08 20:36 | disposition home or self-care (01) ==
LOC: ER 19:57
DX: S93.492A Sprain of other ligament of left ankle, initial encounter (principal); X58.XXXA Exposure to other specified factors, initial encounter; F17.200 Nicotine dependence, unspecified, uncomplicated
CPT/HCPCS: 99283

== ENCOUNTER 2019-07-12 20:47 | Emergency (ER) | payer OTHER ==
[2019-07-12 21:17] VITALS: BP 135/69
--- NOTE | 2019-07-12 22:44 | ER Document Report ---
ED Medical Screen (RME) - General Chief Complaint: Cough Stated Complaint: COUGH,SORE THROAT Time Seen by Provider: 07/12/19 22:43 Notes: Patient is a 28-year-old female who presents emergency department with a chief complaint of cough. Patient reports for the past 4 days she has had a persistent dry cough. Patient reports that she has been surrounded by sick contacts at work who have similar symptoms and who have had gone home early from work due to the persistent cough. Patient reports this is constant throughout the day but worse at night. Patient reports sore throat. Patient denies fever or ear pain. Patient denies wheezing or shortness of breath. Patient denies nausea, vomiting or diarrhea. Patient denies rash. Patient denies any significant past medical history to include asthma. TRAVEL OUTSIDE OF THE [place] IN LAST 30 DAYS: No - Related Data Allergies/Adverse Reactions: No Known Allergies Allergy (Verified 07/12/19 22:37) Past Medical History - Social History Chew tobacco use (# tins/day): No Frequency of alcohol use: None Drug Abuse: None Pulmonary Medical History: Denies: Hx Asthma, Hx Bronchitis, Hx Pneumonia Renal/ Medical History: Reports: Hx Ovarian Cysts - PCOS. Denies: Hx Peritoneal Dialysis - Immunizations Immunizations up to date: Yes Hx Diphtheria, Pertussis, Tetanus Vaccination: Yes Physical Exam - Vital signs Vitals: Temp Pulse Resp BP Pulse Ox 98.5 F 97 20 135/69 H 98 07/12/19 21:16 07/12/19 21:16 07/12/19 21:16 07/12/19 21:16 07/12/19 21:16 Course - Re-evaluation Re-evalutation: 07/12/19 22:44 Patient is nontoxic-appearing. Will swab the throat for strep. Patient most likely has an upper respiratory illness due to a virus. I have greeted and performed a rapid initial assessment of this patient. A comprehensive ED assessment and evaluation of the patient, analysis of test results and completion of the medical decision making process will be conducted by additional ED providers. - Vital Signs Vital signs: Temp Pulse Resp BP Pulse Ox 98.5 F 97 20 135/69 H 98 07/12/19 21:16 07/12/19 21:16 07/12/19 21:16 07/12/19 21:16 07/12/19 21:16
[2019-07-13] MEDS ORDERED: PREDNISONE 20 MG TABLET PO ONE (00:30)
[2019-07-13] MEDS ORDERED: BENZONATATE 100 MG CAPSULE PO ONE (00:31)
--- NOTE | 2019-07-13 00:37 | ER Document Report ---
Entered by SANTANA MITCHELL SCRIBE 07/13/19 0023 Acting as scribe for:BINA ARORA IV, MD ED General - General Chief Complaint: Cough Stated Complaint: COUGH,SORE THROAT Time Seen by Provider: 07/12/19 22:43 Mode of Arrival: Ambulatory Information source: Patient Notes: This 28 year old female patient presents to the ED today with complaints of a dry, persistent cough for the past x4 days. Patient describes the cough as being constant throughout the day, but worse at night.Patient states that she has been in contact with coworkers who have presented with the same symptoms. Patient reports a sore throat, but denies fever, ear pain, wheezing, shortness of breath, nausea, vomiting, or diarrhea. TRAVEL OUTSIDE OF THE [place] IN LAST 30 DAYS: No - Related Data Allergies/Adverse Reactions: No Known Allergies Allergy (Verified 07/12/19 22:37) Past Medical History - General Information source: Patient - Social History Smoking Status: Never Smoker Cigarette use (# per day): No Chew tobacco use (# tins/day): No Smoking Education Provided: No Frequency of alcohol use: None Drug Abuse: None Family History: Reviewed & Not Pertinent Patient has suicidal ideation: No Patient has homicidal ideation: No Renal/ Medical History: Reports: Hx Ovarian Cysts - PCOS Past Surgical History: Reports: None - Immunizations Immunizations up to date: Yes Hx Diphtheria, Pertussis, Tetanus Vaccination: Yes Review of Systems - Review of Systems Constitutional: See HPI. denies: Fever EENT: See HPI, Throat pain. denies: Ear pain Cardiovascular: No symptoms reported Respiratory: See HPI, Cough. denies: Short of breath, Wheezing Gastrointestinal: See HPI. denies: Diarrhea, Nausea, Vomiting Genitourinary: No symptoms reported Female Genitourinary: No symptoms reported Musculoskeletal: No symptoms reported Skin: No symptoms reported Hematologic/Lymphatic: No symptoms reported Neurological/Psychological: No symptoms reported -: Yes All other systems reviewed and negative Physical Exam - Vital signs Vitals: Temp Pulse Resp BP Pulse Ox 98.5 F 97 20 135/69 H 98 07/12/19 21:16 07/12/19 21:16 07/12/19 21:16 07/12/19 21:16 07/12/19 21:16 Interpretation: Normal - General General appearance: Alert In distress: None - HEENT Head: Normocephalic, Atraumatic Eyes: Normal Pupils: PERRL Pharynx: Erythema, Other - Mild tonsillar edema bilaterally. No uvular shift. No trismus. No submandibular swelling.. No: Exudate - Respiratory Respiratory status: No respiratory distress Chest status: Nontender Breath sounds: Normal Chest palpation: Normal - Cardiovascular Rhythm: Regular Heart sounds: Normal auscultation Murmur: No - Abdominal Inspection: Normal Distension: No distension Bowel sounds: Normal Tenderness: Nontender - Abdomen soft. Organomegaly: No organomegaly - Back Back: Normal, Nontender - Extremities General upper extremity: Normal inspection General lower extremity: Normal inspection - Neurological Neuro grossly intact: Yes - Psychological Associated symptoms: Normal affect, Normal mood - Skin Skin Temperature: Warm Skin Moisture: Dry Skin Color: Normal Course - Vital Signs Vital signs: Temp Pulse Resp BP Pulse Ox 98.7 F 94 20 135/69 H 100 07/13/19 00:01 07/13/19 00:01 07/13/19 00:01 07/13/19 00:06 07/13/19 00:01 Discharge - Discharge Clinical Impression: Viral pharyngitis, Cough Condition: Good Disposition: HOME, SELF-CARE Instructions: Upper Respiratory Illness ([facility]) Additional Instructions: Return to the Emergency Department without delay if any worse. HOME CARE INSTRUCTIONS & INFORMATION: Thank you for choosing us for your medical needs. We hope you're satisfied with the care you received. After you leave, you must properly care for your problem and, at the same time, observe its progress. Any condition can change. Some illnesses can change rapidly over hours or days. If your condition worsens, return to the Emergency Department or see your physician promptly. ABOUT YOUR X-RAYS AND EKG'S: If you had an EKG or X-rays taken, they have been read by the Emergency Physician. The X-rays and EKG's will also be read by a Radiologist or Liquid Compounder within 24 hours. If discrepancies are noted, you will be notified by telephone. Please be certain the ED has a correct telephone number & address where you can be reached. Also, realize that some fractures or abnormalities do not show up on initial X-rays. If your symptoms continue, see your physician. ABOUT YOUR LABORATORY TEST: If you had laboratory tests, the results have been reviewed by the Emergency Physician. Some test results (for example cultures) may not be available for several days. You will be contacted if any test result shows you need additional treatment. Please be certain the ED has a correct telephone number and address where you can be reached. ABOUT YOUR MEDICATIONS: You will receive instructions on how to take your medicine on the prescription label you receive. Additional information may be provided by the Pharmacy. If you have questions afterwards, call the ED for clarification or further instructions. Some prescribed medications may cause drowsiness. Do not perform tasks such as driving a car or operating machinery without consulting your Pharmacist. If you feel you need a refill of pain medication, your condition will need re-evaluation. Please do not call for a refill of any medication. ABOUT YOUR SIGNATURE: Signature of this document acknowledges to followin. Understanding that you received emergency treatment and that you may be released before al medical problems are known or treated. Please be certain the ED has a correct phone number & address where you can be reached. 2. Acknowledgement that you will arrange for follow-up care as recommended. 3. Authorization for the Emergency Physician to provide information to your follow-up Physician in order to maximize your care. AT ANY TIME, IF YOUR SYMPTOMS CHANGE SIGNIFICANTLY OR WORSEN OR YOU DEVELOP NEW SYMPTOMS, RETURN TO THE EMERGENCY DEPARTMENT IMMEDIATELY FOR RE-EVALUATION. OUR GOAL IS TO PROVIDE EXCELLENT MEDICAL CARE! WE HOPE THAT WE HAVE MET YOUR EXPECTATIONS DURING YOUR EMERGENCY DEPARTMENT V ISIT AND THAT YOU FEEL YOU HAVE RECEIVED EXCELLENT CARE! Prescriptions: Benzonatate [Tessalon Perles 100 mg Capsule] 200 mg PO Q8HP PRN #30 capsule PRN Reason: cough Referrals: JYOTI MOHAMUD MD [HONORARY] - Follow up as needed I personally performed the services described in the documentation, reviewed and edited the documentation which was dictated to the scribe in my presence, and it accurately records my words and actions.
== END 2019-07-13 01:31 | disposition home or self-care (01) ==
LOC: ER 20:47
DX: J02.9 Acute pharyngitis, unspecified (principal); R05 Cough
CPT/HCPCS: 99283; 87070; 87880; J7512

== ENCOUNTER 2020-02-05 19:33 | Emergency (ER) | payer BC, OTHER ==
[2020-02-05 19:39] VITALS: BP 121/78
[2020-02-05] MEDS ORDERED: CLINDAMYCIN 900 MG/D5W RTU 900 MG/50 ML RTUPB IV ONE (19:51)
--- NOTE | 2020-02-05 19:56 | ER Document Report ---
ED Medical Screen (RME) - General Chief Complaint: Abscess Stated Complaint: POSSBILE BOIL ON THIGH Time Seen by Provider: 02/05/20 19:50 Mode of Arrival: Ambulatory Information source: Patient Notes: Patient is a 29-year-old female comes emergency room complaining of having an abscess in her left groin area. Patient states it started proximally 4 days ago and has gotten bigger. She denies any drainage of the abscess at this time. The patient states she is here because she wants to have it evaluated and to see if he needs to have a opening. She states she has had these in the past this 1 feels like is gotten bigger over a shorter period of time. Patient denies any other medical problems. She currently has allergies to latex and tape. Physical examination: Patient is a well-nourished well-developed obese 29-year-old female who is in no apparent distress on physical exam today. Cardiac: Slightly tachycardic between 102 beats a minute 107 bpm. Lungs: Auscultation patient's lungs show bilateral breath sounds increased clear to auscultation. Abdomen: In sitting position patient is nontender throughout the lower abdominal area with bowel sounds present. Lower extremity: Patient is very concerned as her left anterior groin it difficult to ascertain at this time in the triage room where we cannot address patient but it appears to be approximately 6 cm long by 5 cm wide on no wound depth and moderate erythema surrounding it with some induration. There is no noticeable discharge at this point. I have greeted and performed a rapid initial assessment of this patient. A comprehensive ED assessment and evaluation of the patient, analysis of test results and completion of the medical decision making process will be conducted by additional ED providers. Dictation of this chart was performed using voice recognition software; therefore, there may be some unintended grammatical errors. Further evaluation of patient's abscess can be determined in the back when she can lay supine or on a left lateral decubitus so that the abscess can be ascertained and seen. She will need to be undressed most likely for the procedure. TRAVEL OUTSIDE OF THE [place] IN LAST 30 DAYS: No - Related Data Allergies/Adverse Reactions: No Known Allergies Allergy (Verified 07/12/19 22:37) Past Medical History Pulmonary Medical History: Denies: Hx Asthma, Hx Bronchitis, Hx Pneumonia Renal/ Medical History: Reports: Hx Ovarian Cysts - PCOS. Denies: Hx Peritoneal Dialysis - Immunizations Immunizations up to date: Yes Hx Diphtheria, Pertussis, Tetanus Vaccination: Yes Physical Exam - Vital signs Vitals: Temp Pulse Resp BP Pulse Ox 99.7 F 107 H 16 121/78 100 02/05/20 19:38 02/05/20 19:38 02/05/20 19:38 02/05/20 19:38 02/05/20 19:38 Course - Vital Signs Vital signs: Temp Pulse Resp BP Pulse Ox 98.2 F 102 H 16 121/78 100 02/05/20 19:51 02/05/20 19:51 02/05/20 19:38 02/05/20 19:38 02/05/20 19:51
== END 2020-02-06 03:48 | disposition left against medical advice (07) ==
LOC: ER 19:33
DX: L02.214 Cutaneous abscess of groin (principal); E66.9 Obesity, unspecified; R00.0 Tachycardia, unspecified; Z53.20 Procedure and treatment not carried out because of patient's decision for unspecified reasons
CPT/HCPCS: 99281

== ENCOUNTER 2020-05-03 19:59 | Emergency (ER) | payer BC, OTHER ==
[2020-05-03] MEDS ORDERED: HYDROCODONE/ACETAMINOPHEN 5-325 MG TABLET PO ONE (21:14)
--- NOTE | 2020-05-03 21:16 | ER Document Report ---
ED Medical Screen (RME) - General Chief Complaint: Abscess Stated Complaint: POSSIBLE BOIL ON RIGHT THIGH Time Seen by Provider: 05/03/20 21:09 Mode of Arrival: Wheelchair Information source: Patient Notes: 29-year-old female presented ED for abscess on both sides. The one on the right side is painful about 5 days one of the left tube and for about 3 days. These are very large abscesses to both thighs. Is not been seen by her doctor she just works and walks and has to be significant much bigger. She states she has not pinched him squeezed them anything like that. She states she does smoke 7 cigarettes a day does not drink any alcohol or do any illicit drugs. She states she has no past medical or surgical history. She states she has no idea when her last tetanus immunization was. She states she has very irregular periods and the last one was about 2 months ago. I did order CBC and a test. I have greeted and performed a rapid initial assessment of this patient. A comprehensive ED assessment and evaluation of the patient, analysis of test results and completion of medical decision making process will be conducted by an additional ED providers. TRAVEL OUTSIDE OF THE [place] IN LAST 30 DAYS: No - Related Data Allergies/Adverse Reactions: No Known Allergies Allergy (Verified 07/12/19 22:37) Past Medical History - Social History Frequency of alcohol use: None Drug Abuse: None Pulmonary Medical History: Denies: Hx Asthma, Hx Bronchitis, Hx Pneumonia Renal/ Medical History: Reports: Hx Ovarian Cysts - PCOS. Denies: Hx Peritoneal Dialysis - Immunizations Immunizations up to date: Yes Hx Diphtheria, Pertussis, Tetanus Vaccination: Yes Physical Exam - Vital signs Vitals: Temp Pulse Resp BP Pulse Ox 98.5 F 111 H 16 135/77 H 95 05/03/20 20:11 05/03/20 20:11 05/03/20 20:11 05/03/20 20:11 05/03/20 20:11 Course - Vital Signs Vital signs: Temp Pulse Resp BP Pulse Ox 98.5 F 111 H 16 135/77 H 95 05/03/20 20:11 05/03/20 20:11 05/03/20 20:11 05/03/20 20:11 05/03/20 20:11
[2020-05-03 21:37] LABS: ABSOLUTE BASOPHILS # (AUTO) 0.1 10^3/uL (0.0-0.2); ABSOLUTE EOSINOPHILS # (AUTO) 0.5 10^3/uL (0.0-0.6); ABSOLUTE MONOCYTES (AUTO) 1.1 10^3/uL (0.1-1.4); ABSOLUTE NEUT (AUTO) 12.6 10^3/uL (1.7-8.2); BASOPHILS % (AUTO) 0.5 % (0-2); EOSINOPHILS % (AUTO) 2.9 % (0-6); HEMATOCRIT 44.5 % (36.0-47.0); HEMOGLOBIN 15.4 g/dL (12.0-15.5); LYMPHOCYTES % (AUTO) 17.2 % (13-45); MEAN CORPUSCULAR HEMOGLOBIN 31.1 pg (27.0-33.4); MEAN CORPUSCULAR HGB CONC 34.6 g/dL (32.0-36.0); MEAN CORPUSCULAR VOLUME 90 fl (80-97); MONOCYTES % (AUTO) 6.3 % (3-13); PLATELET COUNT 254 10^3/uL (150-450); RED BLOOD COUNT 4.94 10^6/uL (3.72-5.28); RED CELL DISTRIBUTION WIDTH 13.5 % (11.5-14.0); SEGMENTED NEUTROPHILS % (AUTO) 73.1 % (42-78); TOTAL CELLS COUNTED % (AUTO) 100 %; WHITE BLOOD COUNT 17.3 10^3/uL (4.0-10.5)
[2020-05-04] MEDS ORDERED: LIDOCAINE 1%/EPINEPHRINE INJ 20 ML VIAL INJ ONE (03:49)
[2020-05-04] MEDS ORDERED: CLINDAMYCIN HCL 150 MG CAPSULE PO ONE (03:50)
--- NOTE | 2020-05-04 03:58 | ER Document Report ---
ED Skin Rash/Insect Bite/Abscs - General Chief Complaint: Abscess Stated Complaint: POSSIBLE BOIL ON RIGHT THIGH Time Seen by Provider: 05/03/20 21:09 Mode of Arrival: Wheelchair Notes: CHIEF COMPLAINT: Abscess HPI: 29-year-old female presenting to the emergency department complaining of an abscess to the inner upper right thigh over the last 5 days with progressive redness and swelling. Patient also reports a small tender area on the posterior left thigh. Patient denies fever. Patient reports she has had prior history of multiple skin abscesses in the past. ROS: See HPI - all other systems were reviewed and are otherwise negative Constitutional: no fever Eyes: no drainage, no blurred vision ENT: no runny nose, no sore throat Integumentary: + rash Allergy: no hives Musculoskeletal: + extremity pain or swelling Neurological: no numbness/tingling, no weakness MEDICATIONS: I agree with the patient medications as charted by the RN. ALLERGIES: I agree with the allergies as charted by the RN. PAST MEDICAL HISTORY/PAST SURGICAL HISTORY: Reviewed and agree as charted by RN. SOCIAL HISTORY: Reviewed and agree as charted by RN. FAMILY HISTORY: No significant familial comorbid conditions directly related to patient complaint EXAM: Reviewed vital signs as charted by RN. CONSTITUTIONAL: Alert and oriented and responds appropriately to questions. Well-appearing; well-nourished HEAD: Normocephalic; atraumatic EYES: Conjunctivae clear, sclerae non-icteric ENT: normal nose; no rhinorrhea; moist mucous membranes NECK: Supple without meningismus CARD: symmetric distal pulses RESP: Normal chest excursion without splinting or tachypnea ABD/GI: non-distended BACK: The back appears normal EXT: Normal ROM in all joints; no cyanosis, no effusions, no edema SKIN: Normal color for age and race; warm; dry; good turgor; there is a small raised tender area left posterior thigh measuring 1 cm that drained a small amount of blood and pus on palpation. No surrounding erythema. There is a large indurated fluctuant region measuring 4.5 cm to the inner upper thigh with surrounding erythema measuring 10 cm total diameter. NEURO: Moves all extremities equally; Motor and sensory function intact PSYCH: The patient's mood and manner are appropriate. Grooming and personal hygiene are appropriate. MDM: 29-year-old female small abscess on the left posterior thigh already draining no indication for further incision and drainage. Large abscess with cellulitis to the inner upper right thigh that will require incision and drainage. Will obtain wound culture given her history of multiple previous skin abscesses. Will place patient on clindamycin. TRAVEL OUTSIDE OF THE [place] IN LAST 30 DAYS: No - Related Data Allergies/Adverse Reactions: adhesive Allergy (Verified 05/03/20 21:14) latex Allergy (Verified 05/03/20 21:14) Past Medical History - General Information source: Patient - Social History Smoking Status: Current Some Day Smoker Frequency of alcohol use: None Drug Abuse: None Family History: Reviewed & Not Pertinent Patient has homicidal ideation: No Pulmonary Medical History: Denies: Hx Asthma, Hx Bronchitis, Hx Pneumonia Renal/ Medical History: Reports: Hx Ovarian Cysts - PCOS. Denies: Hx Peritoneal Dialysis - Immunizations Immunizations up to date: Yes Hx Diphtheria, Pertussis, Tetanus Vaccination: Yes Physical Exam - Vital signs Vitals: Temp Pulse Resp BP Pulse Ox 98.5 F 111 H 16 135/77 H 95 05/03/20 20:11 05/03/20 20:11 05/03/20 20:11 05/03/20 20:11 05/03/20 20:11 Course - Vital Signs Vital signs: Temp Pulse Resp BP Pulse Ox 98.5 F 94 16 124/74 100 05/04/20 03:18 05/04/20 03:18 05/04/20 03:18 05/04/20 03:18 05/04/20 03:18 - Laboratory Result Diagrams: 05/03/20 21:25 Laboratory results interpreted by me: 05/03/20 21:25 WBC 17.3 H Absolute Neuts (auto) 12.6 H Procedures - Incision and Drainage Right Upper Thigh Time completed: 04:53 Type: Simple Anesthetic type: 1% Lidocaine w/epi mL's of anesthetic: 3 Blade size: 11 I&D procedure: Betadine prep applied, Iodoform packing placed, Sterile dressing applied Incision Method: Incision made by scalpel Amount/type of drainage: 7 bloody purulent Discharge - Discharge Clinical Impression: Abscess of right thigh, Cellulitis of right thigh, Abscess of left thigh Condition: Stable Disposition: HOME, SELF-CARE Instructions: Post Incision and Drainage, MRSA Cellulitis ([facility]), Abscess ([facility]) Additional Instructions: 1. packing out in 2-3 days 2. follow up with your primary care provider for further evaluation in 2-3 days 3. medicines as prescribed, take Tylenol or Motrin for pain 4. return sooner for any worsening condition, increasing redness or onset of fever 5. apply warm compresses to the wound area 2-3 times daily Prescriptions: Hydrocodone/Acetaminophen [Tiline 5-325 mg Tablet] 1 tab PO Q4HP PRN #14 tablet PRN Reason: Clindamycin HCl [Cleocin 150 mg Capsule] 150 mg PO Q6 #40 capsule Forms: Return to Work Referrals: BEAU RIVERA MD [COMMUNITY BASED STAFF] - Follow up as needed
[2020-05-04] MEDS ORDERED: HYDROCODONE/ACETAMINOPHEN 5-325 MG (6 TAB/ER DISP) PO PRN (04:50)
[2020-05-04 05:31] VITALS: BP 134/80
== END 2020-05-04 05:29 | disposition home or self-care (01) ==
LOC: ER 19:59
DX: L02.415 Cutaneous abscess of right lower limb (principal); L03.115 Cellulitis of right lower limb; L02.416 Cutaneous abscess of left lower limb; F17.210 Nicotine dependence, cigarettes, uncomplicated; Z91.048 Other nonmedicinal substance allergy status; Z91.040 Latex allergy status
CPT/HCPCS: 99284; 36415; 87070; 87205; 82962; 84703; 85025; 87075; 87077; 10060; J3490; 87186